=== PATIENT | male | born 1975 | race African-American/Black ===

== ENCOUNTER 2017-04-25 06:17 | Emergency (ER) | payer OTHER ==
[~2017-04-25] VITALS: Ht 177.8 cm; Wt 116.3 kg
[2017-04-25] MEDS ORDERED: VENTOLIN HFA18 GM IH (07:40)
[2017-04-25] MEDS ORDERED: CLINDAMYCIN HC150 MG PO (07:50)
[2017-04-25] MEDS ORDERED: PERCOCET 2.51 TABLET PO (07:50)
[2017-04-25 08:25] VITALS: BP 132/98
== END 2017-04-25 08:26 | disposition home or self-care (01) ==
LOC: EME 06:17 → EDBD 06:17 → EME 08:26
PROC: 0H9HXZZ Drainage of Right Upper Leg Skin, External Approach (ICD-10-PCS; principal; 2017-04-25)
DX: L02.415 Cutaneous abscess of right lower limb (principal); J45.909 Unspecified asthma, uncomplicated; F17.200 Nicotine dependence, unspecified, uncomplicated
CPT/HCPCS: 87070; 87075; 87076; 87077; 87185; 87186; 87205